=== PATIENT | female | born 1980 | race American Indian/Alaskan Native ===

== ENCOUNTER 2019-07-22 08:52 | Emergency (ER) | payer MEDICAID ==
[2019-07-22] MEDS ORDERED: ACETAMINOPHEN 500 MG TAB PO ONE (09:28)
--- NOTE | 2019-07-22 09:29 | Emergency Department Report ---
ED Female HPI - General Chief complaint: Vaginal Bleeding Stated complaint: PELVIC PAIN EXTREME/CRAMPS Time Seen by Provider: 07/22/19 09:27 Source: patient Mode of arrival: Ambulatory Limitations: No Limitations - History of Present Illness Initial comments: Patient is a 38-year-old -Nepalese female who comes to the ER today complaining of vaginal bleeding and cramping. She states that she is concerned that she is miscarrying. Her last menstrual cycle was 1116. She states that she did have a confirmed at an unknown location on [facility]. Patient is unable to provide me the name. She does state that she did not see a doctor there she just went in and had a urine test that confirmed that she was . Patient has no follow-up appointment scheduled. Patient has no established OB. Her last child who is 5 was born here at [facility]. And she has a 19-year-old that was born in [place]. Patient has been 7 times and has 2 living children. She has had 5 miscarriages. She states her last miscarriage was in March. Patient is tearful because she really wanted to have a another child. Patient states that when she miscarried the last time she was told not to get that she would likely miscarry again. Per the EMR patient is Rh+. On arrival to the emergency room the patient's vital signs are stable heart rate is 97. She is not hypotensive. She has no fever. She is tearful on exam. She is ambulatory and able to take p.o. Patient reports a history of genital herpes and an abnormal Pap smear. She denies having an active outbreak of herpes at this time. Patient is on no home medications. Complaint: vaginal bleeding -: Gradual, days(s) Severity: moderate Quality: cramping Consistency: constant Improves with: none Worsens with: none Are you Now?: Yes Last Menstrual Period: 04/26/19 EDC: 01/31/20 Associated Symptoms: vaginal bleeding, abdominal pain. denies: vaginal discharge, nausea/vomiting, fever/chills, headaches, loss of appetite, dysuria, hematuria, rash, seizure, shortness of breath, syncope, weakness - Related Data Sexually active: Yes : 7 Para: 2 A: 5 Previous Rx's Medication Instructions Recorded Last Taken Type Ferrous Sulfate [Feosol 325 MG tab] 325 mg PO BID #60 tablet 12/27/13 Unknown Rx Cyclobenzaprine [Flexeril 10mg] 10 mg PO Q8H PRN #21 tablet 10/09/14 Unknown Rx HYDROcodone/APAP 10-325 [[place] 1 each PO Q6HR PRN #16 tablet 10/09/14 Unknown Rx 10/325] Ibuprofen [Motrin] 800 mg PO Q8HR PRN #30 tablet 02/12/15 Unknown Rx methOCARBAMOL [Robaxin TAB] 500 mg PO BID #10 tab 02/12/15 Unknown Rx traMADoL [Ultram] 50 mg PO Q6HR PRN #14 tablet 02/12/15 Unknown Rx Ibuprofen [Motrin 800 MG tab] 800 mg PO Q8HR PRN #30 tablet 07/22/19 Unknown Rx Methylergonovine [Methergine] 0.2 mg PO Q8HR #6 tablet 07/22/19 Unknown Rx Misoprostol [Cytotec] 200 mcg PO Q6HR #3 tablet 07/22/19 Unknown Rx metroNIDAZOLE [Flagyl] 500 mg PO Q12HR 7 Days #14 tab 07/22/19 Unknown Rx Allergies Allergy/AdvReac Type Severity Reaction Status Date / Time butorphanol tartrate Allergy Itching Verified 02/23/16 13:42 [From Stadol] fentanyl Allergy Itching Verified 02/23/16 13:42 ED Review of Systems ROS: Stated complaint: PELVIC PAIN EXTREME/CRAMPS Other details as noted in HPI Comment: All other systems reviewed and negative ED Past Medical Hx - Past Medical History Previous Medical History?: Yes Hx Seizures: No Hx Asthma: No Hx COPD: No Hx Tuberculosis: No Hx HIV: No Additional medical history: Herpes. hx abnormal pap - Surgical History Past Surgical History?: No - Family History Family history: no significant - Social History Smoking Status: Current Every Day Smoker Substance Use Type: None - Medications Home Medications: Home Medications Medication Instructions Recorded Confirmed Last Taken Type Ferrous Sulfate [Feosol 325 MG tab] 325 mg PO BID #60 tablet 12/27/13 10/09/14 Unknown Rx Cyclobenzaprine [Flexeril 10mg] 10 mg PO Q8H PRN #21 tablet 10/09/14 Unknown Rx HYDROcodone/APAP 10-325 [[place] 1 each PO Q6HR PRN #16 tablet 10/09/14 Unknown Rx 10/325] Ibuprofen [Motrin] 800 mg PO Q8HR PRN #30 tablet 02/12/15 Unknown Rx methOCARBAMOL [Robaxin TAB] 500 mg PO BID #10 tab 02/12/15 Unknown Rx traMADoL [Ultram] 50 mg PO Q6HR PRN #14 tablet 02/12/15 Unknown Rx Ibuprofen [Motrin 800 MG tab] 800 mg PO Q8HR PRN #30 tablet 07/22/19 Unknown Rx Methylergonovine [Methergine] 0.2 mg PO Q8HR #6 tablet 07/22/19 Unknown Rx Misoprostol [Cytotec] 200 mcg PO Q6HR #3 tablet 07/22/19 Unknown Rx metroNIDAZOLE [Flagyl] 500 mg PO Q12HR 7 Days #14 tab 07/22/19 Unknown Rx ED Physical Exam - General Limitations: No Limitations General appearance: alert, in no apparent distress - Head Head exam: Present: atraumatic, normocephalic - Eye Eye exam: Present: normal appearance - ENT ENT exam: Present: mucous membranes moist - Neck Neck exam: Present: normal inspection - Respiratory Respiratory exam: Present: normal lung sounds bilaterally. Absent: respiratory distress - Cardiovascular Cardiovascular Exam: Present: regular rate, normal rhythm. Absent: systolic murmur, diastolic murmur, rubs, gallop - GI/Abdominal GI/Abdominal exam: Present: soft, normal bowel sounds - Extremities Exam Extremities exam: Present: normal inspection - Back Exam Back exam: Present: normal inspection - Neurological Exam Neurological exam: Present: alert, oriented X3 - Psychiatric Psychiatric exam: Present: normal affect, normal mood - Skin Skin exam: Present: warm, dry, intact, normal color. Absent: rash ED Course Vital Signs 07/22/19 07/22/19 07/22/19 08:56 09:36 10:21 Temperature 97.6 F Pulse Rate 97 H Respiratory 16 16 Rate Blood Pressure 117/80 104/62 O2 Sat by Pulse 99 99 100 Oximetry 07/22/19 11:00 Temperature Pulse Rate Respiratory Rate Blood Pressure 117/75 O2 Sat by Pulse 100 Oximetry ED Medical Decision Making - Lab Data Result diagrams: 07/22/19 10:02 07/22/19 10:02 - Radiology Data Radiology results: report reviewed, image reviewed ab in process - Medical Decision Making Labs 07/22/19 07/22/19 07/22/19 10:02 10:02 10:02 WBC 3.9 L RBC 3.75 Hgb 8.6 L Hct 26.1 L MCV 70 L MCH 23 L MCHC 33 RDW 14.7 Plt Count 360 Sodium 138 Potassium 4.0 Chloride 101.7 Carbon Dioxide 21 L Anion Gap 19 BUN 6 L Creatinine 0.6 L Estimated GFR > 60 BUN/Creatinine Ratio 10 Glucose 101 H Calcium 8.9 HCG, Quant 115.7 H Blood Type Antibody Screen 07/22/19 10:30 WBC RBC Hgb Hct MCV MCH MCHC RDW Plt Count Sodium Potassium Chloride Carbon Dioxide Anion Gap BUN Creatinine Estimated GFR BUN/Creatinine Ratio Glucose Calcium HCG, Quant Blood Type AB POSITIVE Antibody Screen Negative Vital Signs 07/22/19 07/22/19 07/22/19 08:56 09:36 10:21 Temperature 97.6 F Pulse Rate 97 H Respiratory 16 16 Rate Blood Pressure 117/80 104/62 O2 Sat by Pulse 99 99 100 Oximetry 07/22/19 11:00 Temperature Pulse Rate Respiratory Rate Blood Pressure 117/75 O2 Sat by Pulse 100 Oximetry US results discussed with radiology. Dr Eller paged. She will see and evaluate pt. Pt given NS/tylenol/cytotec/methogen per OB recs Room prepped for OB exam labs noted RH pos 1155 re-exam; pt resting without complaints PLAN OB EVAL AND Dispo [address] ELLER AT BEDSIDE PT CLEARED FOR DC WITH FOLLOW UP PLAN - Differential Diagnosis ro ab Critical care attestation.: If time is entered above; I have spent that time in minutes in the direct care of this critically ill patient, excluding procedure time. ED Disposition Clinical Impression: Spontaneous Disposition: DC-01 TO HOME OR SELFCARE Is pt being admited?: No Does the pt Need Aspirin: No Condition: Stable Additional Instructions: PELVIC REST MEDS ORDERED BY OB TODAY SEE RX FOLLOW UP SATURDAY INSTRUCTED STAY WELL HYDRATED Prescriptions: Misoprostol [Cytotec] 200 mcg PO Q6HR #3 tablet metroNIDAZOLE [Flagyl] 500 mg PO Q12HR 7 Days #14 tab Methylergonovine [Methergine] 0.2 mg PO Q8HR #6 tablet Ibuprofen [Motrin 800 MG tab] 800 mg PO Q8HR PRN #30 tablet PRN Reason: Pain, Moderate (4-6) Referrals: PRIMARY CARE, [Primary Care Provider] - 3-5 Days AMARA ELLER MD [Staff Physician] - 3-5 Days Time of Disposition: 11:56
--- NOTE | 2019-07-22 10:12 | Ultrasound Report ---
FIRSTTRIMESTER OBSTETRIC ULTRASOUND HISTORY: Positive test and heavy vaginal bleeding. COMPARISON: None. TECHNIQUE: Routine transabdominal OB ultrasound performed. FINDINGS: Uterus: Mildly enlarged measuring 10.4 x 5.7 x 6.1 cm. Gestational Sac: Located in the dilated cervix and measuring 5.2 x 4.0 x 4.4 cm. Yolk Sac: Not identified. Fetus/Embryo: Nonliving with [place]-rump length of 38.7 millimeters, corresponding to an estimated ges tational age of 10 weeks, 4 days.. Embryonic/ cardiac activity: None. Ovaries: The right ovary is normal in size and appearance , measuring 3.1 x 2.1 x 3.2 cm. The left ovary is normal in size and appearance , measuring 3.5 x 2.1 x 1.9 cm. Additional findings: No free fluid or adnexal mass. IMPRESSION: 1. Intrauterine demise with in progress. Signer Name: Km Valero MD Signed: 07/22/2019 10:06 AM Workstation Name: [id number]
[2019-07-22] MEDS ORDERED: SODIUM CHLORIDE 0.9% 1000 ML 1,000 ML IV ONE (10:13)
[2019-07-22] MEDS ORDERED: miSOPROStol 25 MCG TAB PO ONE (10:19)
[2019-07-22 10:21] LABS: Hematocrit 26.1 % (30.3-42.9); Hemoglobin 8.6 gm/dl (10.1-14.3); Mean Corpuscular HGB Conc 33 % (30-34); Platelet Count 360 K/mm3 (140-440); Red Blood Count 3.75 M/mm3 (3.65-5.03); Red Cell Distribution Width 14.7 % (13.2-15.2)
[2019-07-22] MEDS ORDERED: METHYLERGONOVINE MALEATE 0.2 MG/ML VIAL IM ONE (10:21)
[2019-07-22 10:24] LABS: Mean Corpuscular Volume 70 fl (79-97)
[2019-07-22 10:41] LABS: BUN/Creatinine Ratio 10; Blood Urea Nitrogen 6 mg/dL (7-17); Calcium 8.9 mg/dL (8.4-10.2); Hemolysis Index 6
[2019-07-22] MEDS ORDERED: miSOPROStol 200 MCG TAB PO ONE (11:00)
[2019-07-22 11:23] VITALS: BP 117/75
[2019-07-22 11:34] LABS: Bilirubin,Urine NEG (Negative); Blood,Urine MOD (Negative); Color,Urine Straw (Yellow); Mucus,Urine FEW /HPF; Protein,Urine <15 mg/dL mg/dL (Negative); Urobilinogen,Urine < 2.0 mg/dL (<2.0)
--- NOTE | 2019-07-22 13:08 | Event Note ---
Date: 07/22/19 Pt seen and evaluated. Full consulation to follow. Pt desires medical therapy at this time for pending SAB. Clots removed from the vagina and no active bleeding noted after removal of clots. Septic precautions given. Pt will have rx for cytotec, methergin, and Ibuprofen to complete medical manamgne of pending SAB. Pt will f/u in my office on Saturday07/24/2019. Office number is [phone].
--- NOTE | 2019-07-22 13:27 | Consultation ---
History of Present Illness Consult date: 07/22/19 Reason for consult: other (incomplete abrotion) History of present illness: Patient is a 38-year-old -Guyanese female who comes to the ER today complaining of vaginal bleeding and cramping. She states that she is concerned that she is miscarrying. Her last menstrual cycle was 1116. She states that she did have a confirmed at an unknown location on [facility]. Patient is unable to provide me the name. She does state that she did not see a doctor there she just went in and had a urine test that confirmed that she was . Patient has no follow-up appointment scheduled. Patient has no established OB. Her last child who is 5 was born here at [facility]. And she has a 19-year-old that was born in [place]. Patient has been 7 times and has 2 living children. She has had 5 mi scarriages. She states her last miscarriage was in March. Patient states that the bleeding started on last week and got progressively heavy. States she remembers from previous miscarriage and is sure she did not pass any tissue. Exam today showed clots in vagina that were removed from the cx but otherwise minimal vaginal bleeding. Pt did states she had some small clots she passed over the last week but denies using more than one pad per hour for two hours back to back. Construction Tech consulted to see pt at this time. Past History Past Medical History: other (see h&P) Past Surgical History: other (see h&P) ST[employer] History: other (see h&P) Family/Genetic History: other (see h&P) - Obstetrical History : 7 Para: 2 Spontaneous Abortions: 5 Induced : 2 Medications and Allergies Allergies Allergy/AdvReac Type Severity Reaction Status Date / Time butorphanol tartrate Allergy Itching Verified 02/23/16 13:42 [From Stadol] fentanyl Allergy Itching Verified 02/23/16 13:42 Home Medications Medication Instructions Recorded Confirmed Last Taken Type Ferrous Sulfate [Feosol 325 MG tab] 325 mg PO BID #60 tablet 12/27/13 10/09/14 Unknown Rx Cyclobenzaprine [Flexeril 10mg] 10 mg PO Q8H PRN #21 tablet 10/09/14 Unknown Rx HYDROcodone/APAP 10-325 [[place] 1 each PO Q6HR PRN #16 tablet 10/09/14 Unknown Rx 10/325] Ibuprofen [Motrin] 800 mg PO Q8HR PRN #30 tablet 02/12/15 Unknown Rx methOCARBAMOL [Robaxin TAB] 500 mg PO BID #10 tab 02/12/15 Unknown Rx traMADoL [Ultram] 50 mg PO Q6HR PRN #14 tablet 02/12/15 Unknown Rx Ibuprofen [Motrin 800 MG tab] 800 mg PO Q8HR PRN #30 tablet 07/22/19 Unknown Rx Methylergonovine [Methergine] 0.2 mg PO Q8HR #6 tablet 07/22/19 Unknown Rx Misoprostol [Cytotec] 200 mcg PO Q6HR #3 tablet 07/22/19 Unknown Rx metroNIDAZOLE [Flagyl] 500 mg PO Q12HR 7 Days #14 tab 07/22/19 Unknown Rx Review of Systems All systems: negative - Vital Signs Vital signs: Vital Signs Temp Pulse Resp BP Pulse Ox 97.6 F 97 H 16 117/80 99 07/22/19 08:56 07/22/19 08:56 07/22/19 08:56 07/22/19 08:56 07/22/19 08:56 Temp Pulse Resp BP Pulse Ox 97.6 F 97 H 16 117/75 100 07/22/19 08:56 07/22/19 08:56 07/22/19 09:36 07/22/19 11:00 07/22/19 11:00 - Physical Exam Lungs: Positive: Normal air movement Abdomen: Positive: normal appearance, soft. Negative: distention, tenderness, guarding Genitourinary (Female): Positive: normal external genitalia, normal perenium Vagina: Positive: other (minimal blood noted after removal of large clot. Odor was noted on exam but no d/c see due to clot that was removed and vaginal blood present.) Cervix: Positive: other (bulging clots noted from cervix and removed. Minimal bleeding noted with removal of what appeared to be clots. cx appears only 1cm dialted on visual exam) Results Result Diagrams: 07/22/19 10:02 07/22/19 10:02 Abnormal lab results 07/22/19 07/22/19 07/22/19 Range/Units 10:02 10:02 10:02 WBC 3.9 L (4.5-11.0) K/mm3 Hgb 8.6 L (10.1-14.3) gm/dl Hct 26.1 L (30.3-42.9) % MCV 70 L (79-97) fl MCH 23 L (28-32) pg Carbon Dioxide 21 L (22-30) mmol/L BUN 6 L (7-17) mg/dL Creatinine 0.6 L (0.7-1.2) mg/dL Glucose 101 H (65-100) mg/dL HCG, Quant 115.7 H (0-4) mIU/mL All other labs normal. Assessment and Plan - Patient Problems (1) Spontaneous Current Visit: Yes Status: Acute Plan to address problem: -pt appears to be having SAB and is stable at this time. I d/w incomplete and septic abortions. I d/w medical management as well as surgical management. All risk, benefits and alternatives were d/w pt and questions were addressed and answered. -she agrees to medical management -f/u in my office on Saturday or sooner in the ER if having excessive bleeding(ie using more than one pad per hour for two hours back to back), fevers (temp 100.4 or greater). -I d/w need for surgical management if no resolution with medical therapy -all questions were addressed and answered.
== END 2019-07-22 15:04 | disposition home or self-care (01) ==
LOC: ED 08:52
DX: O03.9 Complete or unspecified spontaneous abortion without complication (principal); O26.891 Other specified pregnancy related conditions, first trimester; O99.331 Smoking (tobacco) complicating pregnancy, first trimester; R10.2 Pelvic and perineal pain; R25.2 Cramp and spasm; Z79.899 Other long term (current) drug therapy; Z88.8 Allergy status to other drugs, medicaments and biological substances; Z3A.10 10 weeks gestation of pregnancy
CPT/HCPCS: 36415; 76801; 80048; 81001; 84702; 85027; 86850; 86900; 86901; 96372; 99284; J2210; J7030